=== PATIENT | female | born 1950 | race Caucasian/White ===

== ENCOUNTER 2023-03-03 06:48 | Day surgery (SDC) | payer MEDICARE, SELFPAY ==
[2023-03-03 07:20] VITALS: BP 151/82; PULSE 71; RESP 16; TEMP 36.5; O2SAT 100
[2023-03-03] MEDS: Tropicam./Phenyleph. (1/2.5%) 5 ML BTL OS ×3 (07:26→07:36)
--- NOTE | 2023-03-03 07:33 | ANES.PREOP_ITS ---
General Info Date of Service Date Performed: 03/03/23 Height: 5 ft 1 in Weight: 53 kg Body Mass Index (BMI): 22.1 Surgical Procedure: Operation Date: 03/03/23 08:40 Proposed Procedure Side Surgeon p Cataract Extraction with IOL Implant Left Sean Cheng MD Meds Allergies and Home Medications Allergies Allergy/AdvReac Type Severity Reaction Status Date / Time Penicillins Allergy Intermediate Skin Rash Verified 03/03/23 07:17 Home Medication Medication Instructions Recorded docusate sodium 100 mg capsule 100 mg PO PRN PRN 03/01/23 doxazosin 2 mg tablet 2 mg PO DAILY 03/01/23 Current Visit Medications: Current Medications Generic Name Dose Route Start Last Admin Trade Name Freq PRN Reason Stop Dose Admin Acetaminophen 1,000 mg 03/03/23 06:00 Acetaminophen 500 Mg Tab PO 04/02/23 05:59 Q4H PRN PRN Balanced Salt Solution 500 ml 03/03/23 06:00 Balanced Salt Soln.-Plus 500 Ml Bag OP 04/02/23 05:59 DIRECTED JOLLY Miscellaneous Medication 0 ml 03/03/23 06:00 Prednisolone 1%, Moxifloxacin 0.5%, Nepafenac 0.1% 5ml Btl OS 04/02/23 05:59 DIRECTED JOLLY Miscellaneous Medication 0 ml 03/03/23 06:00 03/03/23 07:31 Tropicam./Phenyleph. (1/2.5%) 5 Ml Btl OS 04/02/23 05:59 1 drp DIRECTED JOLLY Administration Tetracaine HCl 0 ml 03/03/23 06:00 Tetracaine 0.5% 4 Ml Btl OS 04/02/23 05:59 DIRECTED JOLLY PFSH Active Problems Active Problems: Problem Status Onset Code Posterior subcapsular age-related cataract of left eye H25.042 Nuclear age-related cataract, left eye H25.12 Medical History Medical History Alcohol dependence Hx of flexible sigmoidoscopy Hypertensive disorder Hypo-osmolality and hyponatremia Osteoporosis Palpitations Premature atrial beats PVCs (premature ventricular contractions) Surgical History Surgical History H/O cervical discectomy c3-4 c4-5 with fusion and plating in situ H/O ovarian cystectomy History of carpal tunnel release Hx of appendectomy Hx of colonoscopy Hx of esophagogastroduodenoscopy Hx of tubal ligation Tobacco Smoking/Tobacco Use Status: Former Tobacco Use Alcohol Alcohol Intake: current Alcohol intake frequency: 3 or more drinks per day Substance Use Substance use: Never Substance use type: does not use Vital Signs and Lab Results Vital Signs Most Recent Vital Signs in EMR: Most Recent Vital Signs Temp Pulse Resp BP Pulse Ox 36.5 C 71 16 151/82 H 100 03/03/23 07:20 03/03/23 07:20 03/03/23 07:20 03/03/23 07:20 03/03/23 07:20 Lab Results Blood Type / Crossmatch: No Data to Display Complete Blood Count: No Data to Display Complete Metabolic Panel: No Data to Display Liver Function Panel: No Data to Display Coagulation Panel: No Data to Display Cardiac Panel: No Data to Display Arterial Blood Gas: No Data to Display Venous Blood Gas: No Data to Display Pancreas Panel: 2 No Data to Display Thyroid Panel: No Data to Display Infectious Disease: No Data to Display Blood Cultures: No Data to Display Toxicology Panel: No Data to Display Anesthesia Assessment and Plan Anesthesia History Personal History: No History of Anesthesia Complications Family History: No Family History of Anesthesia Complications Exercise Tolerance Exercise Tolerance: Metabolic Equivalents>4 Pertinent Negatives Pertinent Negatives: No Major Cardiovascular Symptoms or Complaints, No Major Pulmonary Symptoms or Complaints and No History of CVA/TIA Cardiac & Pulmonary Exam Cardiac Exam: Normal S1/S2 Heart Sounds Pulmonary Exam: Clear Bilateral Breath Sounds Cardiac and Pulmonary Comment:: Post nasal gtt from allergies Implantable Cardiac Device Does patient have a Pacemaker or an ICD?: No Airway Exam Known Difficult Airway: No Mallampati Class: 1 Mouth Opening: Normal (> 3cm) Thyromental Distance: Greater than 3 cm Neck Range of Motion: Full ROM Neck Circumference: Normal Teeth Condition: Normal Dentition and Removable Dentures/Plates Upper (partial) ASA Classification ASA Score: ASA 2 Emergency Case?: No NPO Status NPO Status: NPO Clears >2 hours, Solids >8 hours Anesthesia Plan Resuscitation Status: Full Code Anesthesia Technique: MAC Anesthesia Airway Planned: Natural Airway Monitors Used: Standard Monitors
[2023-03-03 08:15] VITALS: BMI 22.1
[2023-03-03] MEDS: Povidone-Iodine Ophth 30 ML BTL (08:22)
[2023-03-03] MEDS: Tetracaine 0.5% 4 ML BTL OS (08:22)
[2023-03-03] MEDS: Lidocaine 1% Pres-Free 5 ML VIAL (08:28)
[2023-03-03] MEDS: Phenylephrine/Lidocaine (15/10) MG/ML 1 ML VIAL (08:29)
[2023-03-03] MEDS: Balanced Salt Soln.-PLUS 500 ML BAG OP (08:29)
[2023-03-03] MEDS: Duovisc Viscoelastic System EACH 1 EACH (08:30)
[2023-03-03 08:55] VITALS: BP 140/96; PULSE 65; RESP 16; TEMP 36.4; O2SAT 98
--- NOTE | 2023-03-03 08:58 | W.PM.DSUDISC ---
Date of service: 03/03/23 Time of Service: 08:58 Discharge Plan Disposition Patient Disposition: Home Discharge Details Attending Provider: Sean Cheng Primary Care Provider: Michael Fields Home Meds and New Rx's Prescriptions: No Action docusate sodium 100 mg Capsule 100 mg PO PRN PRN doxazosin 2 mg Tablet 2 mg PO DAILY Discharge Instructions Stand Alone Forms: Post-op Topical Cataract, Zeus Choi (DSU) Discharge Orders Discharge Orders: Discharge Order (Routine); Ordered 03/03/23 Ordered By: Sean Cheng DS: Diagnosis Discharge Diagnosis (1) Posterior subcapsular age-related cataract of left eye: Status: Resolved (2) Nuclear age-related cataract, left eye: Status: Resolved
--- NOTE | 2023-03-03 08:59 | W.PM.OP ---
Date of service: 03/03/23 Time of Service: 08:59 Operative Note Operative Note DATE OF PROCEDURE: 03/03/23 PRE-OP DIAGNOSIS: Nuclear/posterior subcapsular cataract, left eye POST-OP DIAGNOSIS: same PROCEDURE: Cataract extraction using phacoemulsification with intraocular lens implant, left eye SURGEON: Sean Cheng ANESTHESIA TYPE: Local By Surgeon and MAC Refer to Anesthesia Record PATHOLOGY: none sent COMPLICATIONS: None Patient was transported to: same day Patient's condition: stable Implants: Javid Clareon [id number] Indications: Progressive decreased vision due to cataract, left eye Procedure Description: CATARACT SURGERY OPERATIVE REPORT PREOPERATIVE DIAGNOSIS: Nuclear/posterior subcapsular cataract, left eye POSTOPERATIVE DIAGNOSIS: Same OPERATION: Cataract extraction using phacoemulsification with posterior chamber intraocular lens implant, left eye. IOL: IOL Global Compensation Manager/Model: Javid Clareon [id number] IOL Power: + 23.5 diopters IOL Serial Number: [id number] Optic Diameter: 6.0mm Haptic/Overall Diameter: 13.0mm PHACO INFO: JavidMaxim Athleticurion Vision System with OZil and Active Fluidics Cumulative Dispersed Energy (CDE): 3.86 seconds SURGEON: Sean Cheng MD, JAIME ANESTHESIA: Monitored Anesthesia Care (MAC), with local sub-tenon's anesthetic infiltration COMPLICATIONS: None SPECIMENS: None INDICATIONS FOR PROCEDURE: The patient is a 72-year-old lady with history of diminished visual acuity in her left eye secondary to the development of nuclear/posterior subcapsular cataract. She has significantly symptomatic that she desires cataract surgery and attempt to improve and maximize her vision. The option of cataract surgery was offered to the patient and she wished to proceed. See office notes for detailed information. PROCEDURE: The correct surgical eye was identified and marked as the left eye and the pupil was dilated in the preoperative area using mydriatics and cycloplegics. The dilated pupil size was 8.0 mm. The patient elected to proceed without oral sedation. The patient was brought to the operating room where cardiopulmonary monitoring was instituted and surgical time-out was performed, confirming the correct operative eye and IOL power. Topical anesthesia was administered and ophthalmic povidone-iodine 5% was instilled into the conjunctival fornices. The stacy-ocular area was prepped with Betadine 10% solution and draped in the usual sterile fashion for intraocular surgery, including an aperture drape. A Tegaderm transparent film dressing was cut in half and used to cover the lashes and lid margins. Care was taken to sequester the lashes and lid margins under the Tegaderm dressing. A lid speculum was placed between the lids of the operative eye and the Javid Lux[employer] Revalia operating microscope was maneuvered into position. Melinda scissors were then used to make a conjunctival buttonhole approximately 6mm posterior to the limbus in the inferonasal quadrant. Blunt dissection was carried out to expose bare sclera, and a blunt-tipped sub-tenon?s anesthesia cannula was introduced and passed posteriorly along the globe where non-preserved plain lidocaine was injected into posterior sub-Tenon?s space. A sideport knife was used to make a paracentesis port. Intraocular phenylephrine/lidocaine was injected into the anterior chamber. The anterior chamber was then filled with viscoelastic. A keratome knife was used construct a two-plane clear corneal tunnel extending 2.0mm into clear cornea. A flap was raised on the anterior capsule and capsulorhexis forceps were used to complete a continuous curvilinear capsulorhexis of 5.5 mm. Balanced salt solution was then used to perform cortical cleaving hydrodissection and nuclear hydrodelineation until the lens could be freely rotated within the capsular bag. The lens nucleus was then disassembled and removed within the capsular bag and iris plane using phacoemulsification. Residual cortical material was removed using the irrigation/aspiration handpiece. The posterior capsule was carefully polished to remove as much residual lens epithelial cells as safely possible. The capsular bag was then inflated and the anterior chamber deepened with viscoelastic. The lens implant described above was inserted into the capsular bag using the Javid Autonome Injector. A Kuglen hook was used to dial the IOL into position. Residual viscoelastic was then removed first from posterior to the IOL, then from the anterior chamber using the I/A handpiece. The lens implant was noted to center nicely within the capsular bag. The incisions were stromally hydrated, and the anterior chamber was reformed using BSS. Then 0.5cc of moxifloxacin 1.0mg/ml were injected into the capsular bag and anterior chamber. The incisions were checked with a Weck spear and found to be secure. Several drops of ophthalmic povidone-iodine 5% were then applied to the eye followed by two drops of Imprimis combination prednisolone/moxifloxacin/nepafenac solution. The drapes were removed and a clear plastic protective eye shield was placed over the eye. The patient was then returned to Same Day Surgery in stable condition.
--- NOTE | 2023-03-03 09:10 | W.ANESPOSTOP ---
Postoperative Evaluation Date, Time and Location Date Performed: 03/03/23 Time Performed: 09:04 Patient Location: Day Surgery Unit Vital Signs Most Recent Imported Vital Signs: Most Recent Vital Signs Temp Pulse Resp BP Pulse Ox 36.4 C L 65 16 140/96 H 98 03/03/23 08:55 03/03/23 08:55 03/03/23 08:55 03/03/23 08:55 03/03/23 08:55 Pain Score Most Recent Pain Score: Most Recent Pain Score Pain Level 0 03/03/23 08:55 Assessment Mental Status: Awake (Alert & Oriented to Patient Baseline) Airway and Respiratory Function: Patent airway with normal (patient baseline) respiratory exam Cardiovascular Function: Hemodynamically Stable Hydration Status: Adequately Hydrated Nausea & Vomiting: No Nausea or Vomiting Pain: Pt. Denies Any Pain Peripheral Nerve Block: Patient did not receive a nerve block
== END 2023-03-03 09:22 | disposition home or self-care (01) ==
LOC: SUR 06:48
PROVIDERS: PCP Internal Medicine; Visit Provider Ophthalmology
PROC: (CPT 66984; principal; 2023-03-03 08:30)
DX: H25.042 Posterior subcapsular polar age-related cataract, left eye (principal); H25.12 Age-related nuclear cataract, left eye; I10 Essential (primary) hypertension
CPT/HCPCS: 66984; V2632

== ENCOUNTER 2023-03-10 07:57 | Day surgery (SDC) | payer MEDICARE, SELFPAY ==
--- NOTE | 2023-03-10 07:42 | ANES.PREOP_ITS ---
General Info Date of Service Date Performed: 03/10/23 Height: 5 ft 1 in Weight: 54.2 kg Body Mass Index (BMI): 22.6 Surgical Procedure: Operation Date: 03/10/23 10:40 Proposed Procedure Side Surgeon p Cataract Extraction with IOL Implant Right Sean Cheng MD Meds Allergies and Home Medications Allergies Allergy/AdvReac Type Severity Reaction Status Date / Time Penicillins Allergy Intermediate Skin Rash Verified 03/10/23 08:26 Home Medication Medication Instructions Recorded docusate sodium 100 mg capsule 100 mg PO PRN PRN 03/01/23 doxazosin 2 mg tablet 2 mg PO DAILY 03/01/23 Current Visit Medications: Current Medications Generic Name Dose Route Start Last Admin Trade Name Freq PRN Reason Stop Dose Admin Acetaminophen 1,000 mg 03/10/23 06:00 Acetaminophen 500 Mg Tab PO 04/09/23 05:59 Q4H PRN PRN Balanced Salt Solution 500 ml 03/10/23 06:00 Balanced Salt Soln.-Plus 500 Ml Bag OP 04/09/23 05:59 DIRECTED [facility] Miscellaneous Medication 0 ml 03/10/23 06:00 Prednisolone 1%, Moxifloxacin 0.5%, Nepafenac 0.1% 5ml Btl OD 04/09/23 05:59 DIRECTED JOLLY Miscellaneous Medication 0 ml 03/10/23 06:00 Tropicam./Phenyleph. (1/2.5%) 5 Ml Btl OD 04/09/23 05:59 DIRECTED JOLLY Polymyxin/Trimethoprim Sulfate 10 ml 03/10/23 07:00 Polymyxin B/Trimethoprim Ophth Soln 10 Ml Btl OS 03/17/23 06:59 DIRECTED JOLLY Prednisolone Acetate 5 ml 03/10/23 07:00 Prednisolone 1% 5 Ml Btl OS 04/09/23 06:59 DIRECTED JOLLY Tetracaine HCl 0 ml 03/10/23 06:00 Tetracaine 0.5% 4 Ml Btl OD 04/09/23 05:59 DIRECTED JOLLY PFSH Active Problems Active Problems: Problem Status Onset Code Nuclear age-related cataract, left eye H25.12 Posterior subcapsular age-related cataract of left eye H25.042 Nuclear age-related cataract, right eye H25.11 Posterior subcapsular age-related cataract, right eye H25.041 Medical History Medical History Alcohol dependence Hx of flexible sigmoidoscopy Hypertensive disorder Hypo-osmolality and hyponatremia Osteoporosis Palpitations Premature atrial beats PVCs (premature ventricular contractions) Surgical History Surgical History H/O cervical discectomy c3-4 c4-5 with fusion and plating in situ H/O ovarian cystectomy History of carpal tunnel release History of cataract surgery Hx of appendectomy Hx of colonoscopy Hx of esophagogastroduodenoscopy Hx of tubal ligation Tobacco Smoking/Tobacco Use Status: Former Tobacco Use Alcohol Alcohol Intake: current Alcohol intake frequency: 3 or more drinks per day Substance Use Substance use: Never Substance use type: does not use Vital Signs and Lab Results Lab Results Blood Type / Crossmatch: No Data to Display Complete Blood Count: No Data to Display Complete Metabolic Panel: No Data to Display Liver Function Panel: No Data to Display Coagulation Panel: No Data to Display Cardiac Panel: No Data to Display Arterial Blood Gas: No Data to Display Venous Blood Gas: No Data to Display Pancreas Panel: No Data to Display Thyroid Panel: No Data to Display Infectious Disease: No Data to Display Blood Cultures: No Data to Display Toxicology Panel: No Data to Display Anesthesia Assessment and Plan Anesthesia History Personal History: No History of Anesthesia Complications Family History: No Family History of Anesthesia Complications Exercise Tolerance Exercise Tolerance: Metabolic Equivalents>4 Pertinent Negatives Pertinent Negatives: No Symptoms of GERD, No Major Cardiovascular Symptoms or Complaints, No Major Pulmonary Symptoms or Complaints and No History of CVA/TIA Cardiac & Pulmonary Exam Cardiac Exam: Normal S1/S2 Heart Sounds Pulmonary Exam: Clear Bilateral Breath Sounds Implantable Cardiac Device Does patient have a Pacemaker or an ICD?: No Airway Exam Known Difficult Airway: No Mallampati Class: 1 Mouth Opening: Normal (> 3cm) Thyromental Distance: Greater than 3 cm Neck Range of Motion: Full ROM Neck Circumference: Normal Teeth Condition: Normal Dentition and Removable Dentures/Plates Upper (partial) ASA Classification ASA Score: ASA 2 Emergency Case?: No NPO Status NPO Status: NPO Clears >2 hours, Solids >8 hours Anesthesia Plan Resuscitation Status: Full Code Anesthesia Technique: MAC Anesthesia Airway Planned: Natural Airway Monitors Used: Standard Monitors Preoperative Comments:: Plan no MKO similar to last case
[2023-03-10 08:05] VITALS: BP 142/71; PULSE 92; RESP 20; TEMP 36.6; O2SAT 99
[2023-03-10] MEDS: Tropicam./Phenyleph. (1/2.5%) 5 ML BTL OD ×3 (08:29→08:38)
[2023-03-10 08:39] VITALS: BMI 22.6
[2023-03-10] MEDS: Tetracaine 0.5% 4 ML BTL OD (09:30)
[2023-03-10] MEDS: Balanced Salt Soln.-PLUS 500 ML BAG OP (09:35)
[2023-03-10] MEDS: Lidocaine 1% Pres-Free 5 ML VIAL (09:36)
[2023-03-10] MEDS: Duovisc Viscoelastic System EACH 1 EACH (09:37)
[2023-03-10] MEDS: Povidone-Iodine Ophth 30 ML BTL (09:37)
[2023-03-10] MEDS: Phenylephrine/Lidocaine (15/10) MG/ML 1 ML VIAL (09:37)
--- NOTE | 2023-03-10 09:54 | W.PM.DSUDISC ---
Date of service: 03/10/23 Time of Service: 09:54 Discharge Plan Disposition Patient Disposition: Home Discharge Details Attending Provider: Sean Cheng Primary Care Provider: Michael Fields Home Meds and New Rx's Prescriptions: No Action docusate sodium 100 mg Capsule 100 mg PO PRN PRN doxazosin 2 mg Tablet 2 mg PO DAILY Discharge Instructions Stand Alone Forms: Post-op Topical Cataract, Zeus Choi (DSU) Discharge Orders Discharge Orders: Discharge Order (Routine); Ordered 03/10/23 Ordered By: Sean Cheng DS: Diagnosis Discharge Diagnosis (1) Nuclear age-related cataract, right eye: Status: Resolved (2) Posterior subcapsular age-related cataract, right eye: Status: Resolved
[2023-03-10 09:55] VITALS: BP 136/82; PULSE 86; RESP 18; TEMP 36.1; O2SAT 99
--- NOTE | 2023-03-10 09:55 | W.PM.OP ---
Date of service: 03/10/23 Time of Service: 09:55 Operative Note Operative Note DATE OF PROCEDURE: 03/10/23 PRE-OP DIAGNOSIS: Nuclear/posterior subcapsular cataract, right eye POST-OP DIAGNOSIS: same PROCEDURE: Cataract extraction using phacoemulsification with intraocular lens implant, right eye SURGEON: Sean Chegn ANESTHESIA TYPE: Local By Surgeon and MAC Refer to Anesthesia Record ESTIMATED BLOOD LOSS: 0 PATHOLOGY: none sent COMPLICATIONS: None Patient was transported to: same day Patient's condition: stable Implants: Javid Clareon [id number] Indications: Progressive decreased vision due to cataract, right eye Procedure Description: CATARACT SURGERY OPERATIVE REPORT PREOPERATIVE DIAGNOSIS: Nuclear/posterior subcapsular cataract, right eye POSTOPERATIVE DIAGNOSIS: Same OPERATION: Cataract extraction using phacoemulsification with posterior chamber intraocular lens implant, right eye. IOL: IOL Hearing Care Practitioner/Model: Javid Clareon [id number] IOL Power: + 23.5 diopters IOL Serial Number: [id number] Optic Diameter: 6.0mm Haptic/Overall Diameter: 13.0mm PHACO INFO: Javid ClearSaleingurion Vision System with OZil and Active Fluidics Cumulative Dispersed Energy (CDE): 7.55 seconds SURGEON: Sean Cheng MD, JAIME ANESTHESIA: Monitored Anesthesia Care (MAC), with local sub-tenon's anesthetic infiltration COMPLICATIONS: None SPECIMENS: None INDICATIONS FOR PROCEDURE: The patient is a 72-year-old lady with history of diminished visual acuity in both eyes secondary to the development of bilateral nuclear/posterior subcapsular cataract. She has already undergone cataract surgery in the left eye and is doing well postoperatively. She now presents for cataract surgery in the right eye. See office notes for detailed information. PROCEDURE: The correct surgical eye was identified and marked as the right eye and the pupil was dilated in the preoperative area using mydriatics and cycloplegics. The dilated pupil size was 7.0 mm. The patient elected to proceed without oral sedation. The patient was brought to the operating room where cardiopulmonary monitoring was instituted and surgical time-out was performed, confirming the correct operative eye and IOL power. Topical anesthesia was administered and ophthalmic povidone-iodine 5% was instilled into the conjunctival fornices. The stacy-ocular area was prepped with Betadine 10% solution and draped in the usual sterile fashion for intraocular surgery, including an aperture drape. A Tegaderm transparent film dressing was cut in half and used to cover the lashes and lid margins. Care was taken to sequester the lashes and lid margins under the Tegaderm dressing. A lid speculum was placed between the lids of the operative eye and the [employer] operating microscope was maneuvered into position. Melinda scissors were then used to make a conjunctival buttonhole approximately 6mm posterior to the limbus in the inferonasal quadrant. Blunt dissection was carried out to expose bare sclera, and a blunt-tipped sub-tenon?s anesthesia cannula was introduced and passed posteriorly along the globe where non-preserved plain lidocaine was injected into posterior sub-Tenon?s space. A sideport knife was used to make a paracentesis port. Intraocular phenylephrine/lidocaine was injected into the anterior chamber. The anterior chamber was then filled with viscoelastic. A keratome knife was used to construct a two--plane clear corneal tunnel extending 2.0mm into clear cornea. A flap was raised on the anterior capsule and capsulorhexis forceps were used to complete a continuous curvilinear capsulorhexis of 5.0 mm. Balanced salt solution was then used to perform cortical cleaving hydrodissection and nuclear hydrodelineation until the lens could be freely rotated within the capsular bag. The lens nucleus was then disassembled and removed within the capsular bag and iris plane using phacoemulsification. Residual cortical material was removed using the I/A handpiece. The posterior capsule was carefully polished to remove as much residual lens epithelial cells as safely possible. The capsular bag was then inflated and the anterior chamber deepened with cohesive viscoelastic. The lens implant described above was inserted into the capsular bag using the Javid Autonome Injector. A Kuglen hook was used to dial the IOL into position. Residual viscoelastic was then removed first from posterior to the IOL, then from the anterior chamber using the I/A handpiece. The lens implant was noted to center nicely within the capsular bag. The incisions were stromally hydrated, and the anterior chamber was reformed using BSS. Then 0.5cc of moxifloxacin 1.0mg/ml were injected into the capsular bag and anterior chamber. The incisions were checked with a Weck spear and found to be secure. Several drops of ophthalmic povidone-iodine 5% were then applied to the eye followed by two drops of Imprimis combination prednisolone/moxifloxacin/nepafenac solution. The drapes were removed and a clear plastic protective eye shield was placed over the eye. The patient was then returned to Same Day Surgery in stable condition.
--- NOTE | 2023-03-10 10:11 | W.ANESPOSTOP ---
Postoperative Evaluation Date, Time and Location Date Performed: 03/10/23 Time Performed: 10:11 Patient Location: Day Surgery Unit Vital Signs Most Recent Imported Vital Signs: Most Recent Vital Signs Temp Pulse Resp BP Pulse Ox 36.1 C L 86 18 136/82 99 03/10/23 09:55 03/10/23 09:55 03/10/23 09:55 03/10/23 09:55 03/10/23 09:55 Pain Score Most Recent Pain Score: Most Recent Pain Score Pain Level 0 03/10/23 09:55 Assessment Mental Status: Awake (Alert & Oriented to Patient Baseline) Airway and Respiratory Function: Patent airway with normal (patient baseline) respiratory exam Cardiovascular Function: Hemodynamically Stable Hydration Status: Adequately Hydrated Nausea & Vomiting: No Nausea or Vomiting Pain: Pt. Denies Any Pain Peripheral Nerve Block: Other (Local by Dr. Cheng)
== END 2023-03-10 10:07 | disposition home or self-care (01) ==
PROVIDERS: PCP Internal Medicine; Visit Provider Ophthalmology
PROC: (CPT 66984; principal; 2023-03-10 10:30)
DX: H25.11 Age-related nuclear cataract, right eye (principal); H25.041 Posterior subcapsular polar age-related cataract, right eye; Z98.42 Cataract extraction status, left eye
CPT/HCPCS: 66984; V2632